=== PATIENT | female | born 1965 ===

== ENCOUNTER 2023-04-11 06:00 | Outpatient (RCR) | payer OTHER, SELFPAY | END 2023-05-11 23:59 | disposition home or self-care (01) | LOC: TPT 06:00 | PROVIDERS: Visit Provider Nurse Practitioner Family | DX: R07.81 Pleurodynia (principal) | CPT/HCPCS: 97110; 97162 ==

== ENCOUNTER 2023-05-12 06:00 | Outpatient (RCR) | payer OTHER, SELFPAY | END 2023-06-11 23:59 | disposition home or self-care (01) | LOC: TPT 06:00 | PROVIDERS: Visit Provider Nurse Practitioner Family | DX: R07.81 Pleurodynia (principal) | CPT/HCPCS: 97110 ==

== ENCOUNTER 2023-06-17 08:44 | Outpatient (CLI) | payer OTHER, SELFPAY ==
--- NOTE | 2023-06-17 09:00 | MM_ITS ---
WS: [id number] RIGHT 3D TOMOSYNTHESIS DIGITAL MAMMOGRAPHY WITH CAD CLINICAL INFORMATION: ABNORMAL MAMMO HISTORY: Additional views requested from outside facility COMPARISON: Outside mammogram 06/02/2023 and prior mammograms 2012 and 2013 TECHNIQUE: 4 views of the right breast were obtained. FINDINGS: Scattered fibroglandular densities of the right breast. Again seen are the tiny cluster of faint punc sherman amorphous calcifications near the 11 o'clock position RIGHT breast. Spot magnification views dem onstrate heterogeneous configuration to the breast calcifications. Recommend further evaluation with stereotactic guided biopsy. These are best seen on the MLO view. e IMPRESSION: MM/[place] [id number] BI-RADS: 4-Suspicious Finding-Biopsy Should Be Considered FOLLOW UP: Stereotactic Biopsy Recommended
== END 2023-06-17 08:45 | disposition home or self-care (01) ==
PROVIDERS: PCP Nurse Practitioner Family; Visit Provider Family Medicine
DX: R92.8 Other abnormal and inconclusive findings on diagnostic imaging of breast (principal)
CPT/HCPCS: 77061; G0279

== ENCOUNTER 2023-07-14 11:55 | Outpatient (CLI) | payer OTHER, SELFPAY ==
--- NOTE | 2023-07-14 12:48 | MM_ITS ---
WS: [id number] STEREOTACTIC RIGHT BREAST BIOPSY WITH VACUUM ASSISTANCE HISTORY: RT BR CALCS COMPARISON: 06/17/2023, 06/02/2023 Procedure, risks and complications were explained to the patient. Medications and prior radiographs a re reviewed. RIGHT breast calcifications are located. Calcifications identified in the upper outer quadrant of the RIGHT breast towards 11:00. Calcifications are targeted in the craniocaudal projection. The skin is cleansed with ChloraPrep and anesthetized with 1% buffered lidocaine. Deeper soft tissues anesthetize d with a combination of lidocaine and epinephrine. Small dermatome is made. Needle advanced into the RIGHT breast. Stereotactic imaging reveals appropriate positioning adjacent calcifications. Multiple vacuum-assisted core biopsies are obtained. No complications were encountered. Post biopsy specimen radiograph reveals numerous calcifications. Biopsy clip is placed in the cavity. Post imaging reveals good placement of the clip. No migration. Pressures held for approximately 15 minutes. No bleeding. Dressing applied. Patient discharged with n o complications. There is no bleeding. With any questions or complications patient is to return. IMPRESSION: 1. Uncomplicated RIGHT breast stereotactic biopsy. 2. Specimen contains numerous calcifications. MM/MM surgical specimen RT Pathology: Hyalinized fibroadenoma with microcalcifications. Abundant fatty and adipose tissue. No malignancy. RECOMMENDATION: Diagnostic mammogram RIGHT breast follow-up in 6 months.
--- NOTE | 2023-07-14 12:48 | MM_ITS ---
WS: [id number] STEREOTACTIC RIGHT BREAST BIOPSY WITH VACUUM ASSISTANCE HISTORY: RT BR CALCS COMPARISON: 06/17/2023, 06/02/2023 Procedure, risks and complications were explained to the patient. Medications and prior radiographs a re reviewed. RIGHT breast calcifications are located. Calcifications identified in the upper outer quadrant of the RIGHT breast towards 11:00. Calcifications are targeted in the craniocaudal projection. The skin is cleansed with ChloraPrep and anesthetized with 1% buffered lidocaine. Deeper soft tissues anesthetize d with a combination of lidocaine and epinephrine. Small dermatome is made. Needle advanced into the RIGHT breast. Stereotactic imaging reveals appropriate positioning adjacent calcifications. Multiple vacuum-assisted core biopsies are obtained. No complications were encountered. Post biopsy specimen radiograph reveals numerous calcifications. Biopsy clip is placed in the cavity. Post imaging reveals good placement of the clip. No migration. Pressures held for approximately 15 minutes. No bleeding. Dressing applied. Patient discharged with n o complications. There is no bleeding. With any questions or complications patient is to return. IMPRESSION: 1. Uncomplicated RIGHT breast stereotactic biopsy. 2. Specimen contains numerous calcifications. MM/[place] [id number] Pathology: Hyalinized fibroadenoma with microcalcifications. Abundant fatty and adipose tissue. No malignancy. RECOMMENDATION: Diagnostic mammogram RIGHT breast follow-up in 6 months.
--- NOTE | 2023-07-14 12:48 | MM_ITS ---
WS: [id number] STEREOTACTIC RIGHT BREAST BIOPSY WITH VACUUM ASSISTANCE HISTORY: RT BR CALCS COMPARISON: 06/17/2023, 06/02/2023 Procedure, risks and complications were explained to the patient. Medications and prior radiographs a re reviewed. RIGHT breast calcifications are located. Calcifications identified in the upper outer quadrant of the RIGHT breast towards 11:00. Calcifications are targeted in the craniocaudal projection. The skin is cleansed with ChloraPrep and anesthetized with 1% buffered lidocaine. Deeper soft tissues anesthetize d with a combination of lidocaine and epinephrine. Small dermatome is made. Needle advanced into the RIGHT breast. Stereotactic imaging reveals appropriate positioning adjacent calcifications. Multiple vacuum-assisted core biopsies are obtained. No complications were encountered. Post biopsy specimen radiograph reveals numerous calcifications. Biopsy clip is placed in the cavity. Post imaging reveals good placement of the clip. No migration. Pressures held for approximately 15 minutes. No bleeding. Dressing applied. Patient discharged with n o complications. There is no bleeding. With any questions or complications patient is to return. IMPRESSION: 1. Uncomplicated RIGHT breast stereotactic biopsy. 2. Specimen contains numerous calcifications. MM/[place] [id number] Pathology: Hyalinized fibroadenoma with microcalcifications. Abundant fatty and adipose tissue. No malignancy. RECOMMENDATION: Diagnostic mammogram RIGHT breast follow-up in 6 months.
== END 2023-07-14 11:56 | disposition home or self-care (01) ==
PROVIDERS: PCP Nurse Practitioner Family; Visit Provider Nurse Practitioner Family
DX: D24.1 Benign neoplasm of right breast (principal); R92.0 Mammographic microcalcification found on diagnostic imaging of breast
CPT/HCPCS: 19081; 77065; 88305